=== PATIENT | male | born 1995 | race Caucasian/White ===

== ENCOUNTER 2018-10-07 19:07 | Emergency (ER) | payer SELFPAY ==
[~2018-10-07] VITALS: Ht 177.8 cm; Wt 72.6 kg
[~2018-10-07 19:07] MED LIST: DOXY-13 PO; LNS30CCR
[2018-10-07] MEDS ORDERED: EPINEPHrine INJECTION 1 MG/ML AMP IM ONE (19:30)
[2018-10-07] MEDS ORDERED: DEXAMETHASONE 4 MG/ML SDV (DECADRON) IM ONE (19:30)
--- NOTE | 2018-10-07 19:45 | ED General ---
General Chief Complaint: Allergic Reaction Stated Complaint: ALLERGIC REACTION, SOB, BODY RASH Nursing Sepsis Screen: No Definite Risk History of Present Illness Date Seen by Provider: Oct 07, 2018 Time Seen by Provider: 19:39 Initial Comments Patient presents emergency department for evaluation of a rash that has been present for the past 24 hours. He says that he thinks he was exposed to poison sumac as he smokes outside and was out in a wooded area and thinks that he was exposed to it. He has a rash that starts on his arm but also involves his abdomen and back. He says it is quite pruritic and he has been taking Benadryl at the rash continues to spread. He denies any new exposures to soaps or detergents medications or anything else that he can think of. He says he has an allergy to plums but denies any exposures. He says he feels as if his throat is tight and can feel short of breath although he does not appear to be any respiratory distress and his voice has not changed and there is no stridor. He is in no obvious distress with normal vital signs. Allergies and Home Medications Allergies Coded Allergies: No Known Drug Allergies (Unverified , 07/09/11) Home Medications Doxycycline Hyclate 100 Mg Capsule, 1 EACH PO Q12HR Prescribed by: RALPH MEHTA on 07/09/11 8709 Patient Home Medication List Home Medication List Reviewed: Yes Review of Systems Review of Systems Constitutional: no symptoms reported EENTM: throat swelling Respiratory: short of breath Cardiovascular: no symptoms reported Gastrointestinal: no symptoms reported Skin: rash Immunological/Allergic: see HPI All Other Systems Reviewed Negative Unless Noted: Yes Past Ofymdmk-Rhaiyk-Mruktk Hx Patient Social History Recent Foreign Travel: No Contact w/Someone Who Travel: No Recent Infectious Disease Expo: No Immunizations Up To Date Date of Influenza Vaccine: Feb 07, 2011 Physical Exam Vital Signs Vital Signs - First Documented 10/07/18 19:15 Temp 98.0 Pulse 90 Resp 18 B/P (MAP) 121/59 (79) Pulse Ox 97 O2 Delivery Room Air Capillary Refill : Less Than 3 Seconds Height, Weight, BMI Height: 5'10.00" Weight: 160lbs. oz. 72.384312hk; BMI Method:Stated General Appearance: No Apparent Distress, WD/WN HEENT: PERRL/EOMI, Pharynx Normal, Other (airway very patent with no swelling noted.) Neck: Full Range of Motion, Normal Inspection, Supple Respiratory: Lungs Clear, Normal Breath Sounds, No Respiratory Distress Cardiovascular: Regular Rate, Rhythm Neurologic/Psychiatric: Alert, Oriented x3 Skin: Rash (raised erythemetous rash involving both upper extremities and torso, appears consistent with hives. Spares palms, soles and oral mucosa.) Progress/Results/Core Measures Suspected Sepsis Recent Fever Within 48 Hours: No Infection Criteria Present: None New/Unexplained Altered Menta: No Sepsis Screen: No Definite Risk SIRS Temperature:98.0 Pulse: 90 Respiratory Rate: 18 Blood Pressure 121 /59 Mean: 79 Results/Orders My Orders Orders - ANA LUISA ROY DO Dexamethasone Injection (Decadron Inject (10/07/18 19:30) Epinephrine 1 Mg Injection (Adrenalin I (10/07/18 19:30) Medications Given in ED Current Medications Medications Dose Ordered Sig/Rebecca Route Start Time Stop Time Status Last Admin Dose Admin Dexamethasone Sodium Phosphate 10 mg ONCE ONCE IM 10/07/18 19:30 10/07/18 19:31 DC 10/07/18 19:38 10 MG Epinephrine HCl 0.3 mg ONCE ONCE IM 10/07/18 19:30 10/07/18 19:31 DC 10/07/18 19:39 0.3 MG Vital Signs/I&O 10/07/18 19:15 Temp 98.0 Pulse 90 Resp 18 B/P (MAP) 121/59 (79) Pulse Ox 97 O2 Delivery Room Air Capillary Refill : Less Than 3 Seconds Blood Pressure Mean: 79 Progress Note : Progress Note Patient appears to be having a hypersensitivity reaction to something. Patient will be given Decadron and epinephrine here as he already took Benadryl at home 2 hours prior to arrival. Patient's rash appeared to improve so he'll be discharged on a two-week course of prednisone in addition be prescribed an epinephrine pen. He was told only to use it for anaphylaxis which was explained to him. Patient aware and agreeable with plan for discharge and verbalized understanding of the need for short-term follow-up and strict ED return precautions discussed including worsening rash dyspnea or other general concerns. Departure Impression Primary Impression: Hives Additional Impression: Allergic reaction Disposition: 01 HOME, SELF-CARE Condition: Stable Departure-Patient Inst. Referrals: NO,LOCAL PHYSICIAN (PCP/Family) Primary Care Physician Patient Instructions: Hives, Anaphylaxis (DC) Add. Discharge Instructions: All discharge instructions reviewed with patient and/or family. Voiced understanding. Take benadryl 50mg every 6 hours as needed for itching Scripts Epinephrine (Epipen 2-Delvis) 0.3 Mg/0.3 Ml Auto.injct 0.3 MG IJ ONCE PRN for anaphylaxis, #2 ML Prov: ANA LUISA ROY DO 10/07/18 Prednisone (Prednisone) 20 Mg Tab 40 MG PO DAILY for 14 Days, #21 TAB 0 Refills Prov: ANA LUISA ROY DO 10/07/18 Famotidine (Pepcid) 20 Mg Tablet 20 MG PO DAILY, #14 TAB Prov: ANA LUISA ROY DO 10/07/18 ANA LUISA ROY DO Oct 07, 2018 19:45
[2018-10-07] MEDS ORDERED: PRD20T PO (19:46)
[2018-10-07] MEDS ORDERED: EPIN0.3P3 IJ (19:46)
[2018-10-07] MEDS ORDERED: FAMO-119 PO (19:46)
[2018-10-07 20:00] VITALS: BP 123/50
== END 2018-10-07 20:00 | disposition home or self-care (01) ==
LOC: EDUNIT# 19:07 → ER FS 19:08
DX: T78.40XA Allergy, unspecified, initial encounter (principal); L50.9 Urticaria, unspecified; Z91.018 Allergy to other foods
CPT/HCPCS: 99284